=== PATIENT | female | born 1995 | race Caucasian/White ===

== ENCOUNTER 2017-06-13 14:15 | Emergency (ER) | payer SELFPAY ==
[2017-06-13 14:23] VITALS: BP 156/87; BMI 39.9
[2017-06-13 16:10] LABS: BILIRUBIN,URINE NEGATIVE (NEGATIVE); BLOOD/HEMOGLOBIN,URINE NEGATIVE (NEGATIVE); GLUCOSE, URINE NEGATIVE (NEGATIVE); KETONES,URINE NEGATIVE (NEGATIVE); LEUKOCYTE ESTERASE ,URINE 1+ (NEGATIVE); NITRITES,URINE NEGATIVE (NEGATIVE); PROTEIN,URINE NEGATIVE (NEGATIVE); UROBILINOGEN,URINE NORMAL (NORMAL)
--- NOTE | 2017-06-13 16:10 | DR.GENAD ---
HPI - PCP Primary Care Physician: lilian layton - Complaint/Symptoms Chief Complaint Doctors Comments: History as stated. Chief Complaint:: PT C/O EPIGASTRIC PAIN, NAUSEA, AND SEVERE HEART BURN. PT STATES THIS HAS BEEN GOING ON APPROX 2 WEEKS. PT STATES SHE HAS BEEN TO HER PCP AND SHE HAS BEEN PRESCRIBED MEDICATIONS, THAT IS NOT HELPING. Self Treatment fo Chief Complaint: RANTIDINE AND OMEPRAZOLE - Source History Provided: Patient - Mode of Arrival Mode of Arrival: Ambulatory - Timing Onset of Chief Complaint: 06/03/17 PMH - PMH Past Medical History: Yes Past Medical History: Anxiety, Depression, Hypertension Past Surgical History: Yes Past Surgical History Comment: WISDOM TEETH EXTRACTION - Family History History of Family Medical Conditions: No - Social History Does patient currently use any type of tobacco product: Yes Have you used tobacco products in the last 12 months: Yes Type of Tobacco Use: Cigarettes Does any household member use tobacco: Yes Alcohol Use: None Do you use any recreational Drugs:: No Lives With: Family Lives Where: Home - infectious screening In the last 2 months have you had wt loss of >10#?: NO Have you had fever, night sweats or hemotysis?: No Have you traveled outside the country in the last 6 months?: No Isolation: Standard ROS - Review of Systems Constitutional: No Symptoms Reported Eyes: No Symptoms Reported ENTM: No Symptoms Reported Respiratoy: No Symptoms Reported Cardiovascular: No Symptoms Reported Gastrointestinal/Abdominal: No Symptoms Reported Genitourinary: No Symptoms Reported Neurological: No Symptoms Reported Musculoskeletal: No Symptoms Reported Integumentary: No Symptoms Reported Hematologic/Lymphatic: No Symptoms Reported Endocrine: No Symptoms Reported Psychiatric: No Symptoms Reported All Other Systems: Reviewed and Negative PE - Vital Signs Vitals: Temperature 98.7 F Pulse Rate 110 Respiratory Rate 18 Blood Pressure 156/87 O2 Sat by Pulse Oximetry 98 - General Limitations: No Limitations General Appearance: Alert, In No Apparent Distress - Head Head Exam: Normal Inspection, Atraumatic - Eyes Eye exam: Normal Appearance, PERRL, EOMI - ENT ENT Exam: Normal Exam External Ear Exam: Normal External Inspection TM/Canal Exam: Bilateral Normal Nose Exam: Normal Nose Exam, Sinus Tenderness Mouth Exam: Normal Inspection Throat Exam: Normal Inspection - Neck Neck Exam: Normal Inspection, Full ROM - Chest Chest Inspection: Normal Inspection - Respiratory Respiratory Exam: Normal Lung Sounds Bilat Respiratory Exam: Bilateral Clear to Auscultation - Cardiovascular Cardiovascular Exam: Regular Rate, Normal Rhythm - Abdominal Exam Abdominal Exam: Normal Inspection, Normal Bowel Sounds Abdominal Tenderness: negative: RUQ, RLQ, LUQ, LLQ, Epigastrium, Suprapubic, Diffuse, Mild, Moderate, Severe, Other - Extremities Extremities Exam: Normal Inspection - Back Back Exam: Normal Inspection, Full ROM - Neurologic Neurological Exam: Alert, Oriented X3, CN II-XII Intact - Psychiatric Psychiatric Exam: Normal Affect, Normal Mood - Skin Skin Exam: Warm, Dry, Intact Course - Reevaluation 1st: Improved ROR - Labs Reviewed Result Diagrams: 06/13/17 16:18 06/13/17 16:18 Laboratory: WBC 10.1 X10^3/uL (3.6-10.0) H 06/13/17 16:18 RBC 5.04 X10^6/uL (3.5-5.4) 06/13/17 16:18 Hgb 15.0 g/dL (12.0-16.0) 06/13/17 16:18 Hct 42.9 % (36.0-47.0) 06/13/17 16:18 MCV 85.2 fL (80.0-100.0) 06/13/17 16:18 MCH 29.7 pg (27.0-34.0) 06/13/17 16:18 MCHC 34.9 g/dL (33.0-35.0) 06/13/17 16:18 RDW 13.4 % (11.6-16.5) 06/13/17 16:18 Plt Count 332 X10^3/uL (150.0-450.0) 06/13/17 16:18 MPV 8.2 fL (7.4-11.0) 06/13/17 16:18 Neut % 69.4 % (42.0-75.0) 06/13/17 16:18 Lymph % 21.6 % (21.0-51.0) 06/13/17 16:18 Gove % 6.7 % (0.0-13.0) 06/13/17 16:18 Eos % 1.7 % (0.9-2.9) 06/13/17 16:18 Baso % 0.6 % (0.2-1.0) 06/13/17 16:18 Neut # 7.0 x10^3/uL (2.2-4.8) H 06/13/17 16:18 Lymph # 2.2 X10^3/uL (1.3-2.9) 06/13/17 16:18 Gove # 0.7 x10^3/uL (0.3-0.8) 06/13/17 16:18 Eos # 0.2 x10^3/uL (0.0-0.2) 06/13/17 16:18 Baso # 0.1 X10^3/uL (0.0-0.1) 06/13/17 16:18 Absolute Nucleated RBC 0.0 /100WBC 06/13/17 16:18 Sodium 138 mmol/L (136-145) 06/13/17 16:18 Corrected Sodium TNP 06/13/17 16:18 Potassium 4.2 mmol/L (3.5-5.1) 06/13/17 16:18 Chloride 102 mmol/L (98-107) 06/13/17 16:18 Carbon Dioxide 28.9 mmol/L (21-32) 06/13/17 16:18 BUN 9 mg/dL (7-18) 06/13/17 16:18 Creatinine 0.91 mg/dL (0.55-1.02) 06/13/17 16:18 Est GFR (MDRD) Af Amer > 60 (>60) 06/13/17 16:18 Est GFR (MDRD) Non-Af > 60 (>60) 06/13/17 16:18 Glucose 96 mg/dL (65-99) 06/13/17 16:18 Calcium 9.5 mg/dL (8.5-10.1) 06/13/17 16:18 C-Reactive Protein 6.30 mg/L (0-3.0) H 06/13/17 16:18 Specimen Type Clean catch urine 06/13/17 15:50 Urine Color Yellow (YELLOW) 06/13/17 15:50 Urine Appearance Clear (CLEAR) 06/13/17 15:50 Urine pH 7.0 (5.0 - 8.0) 06/13/17 15:50 Ur Specific Mcgregor 1.010 (1.000-1.030) 06/13/17 15:50 Urine Protein Negative (NEGATIVE) 06/13/17 15:50 Urine Glucose (UA) Negative (NEGATIVE) 06/13/17 15:50 Urine Ketones Negative (NEGATIVE) 06/13/17 15:50 Urine Occult Blood Negative (NEGATIVE) 06/13/17 15:50 Urine Nitrite Negative (NEGATIVE) 06/13/17 15:50 Urine Bilirubin Negative (NEGATIVE) 06/13/17 15:50 Urine Urobilinogen Normal (NORMAL) 06/13/17 15:50 Ur Leukocyte Esterase 1+ (NEGATIVE) 06/13/17 15:50 Urine RBC None seen /HPF (NEGATIVE) 06/13/17 15:50 Urine WBC 1-2 /HPF (NEGATIVE) 06/13/17 15:50 Ur Squamous Epith Cells Few /HPF (NEGATIVE) 06/13/17 15:50 Urine Bacteria 1+ /HPF (NEGATIVE) 06/13/17 15:50 Ur Culture Indicated? No/not indicated 06/13/17 15:50 H. pylori IgG Antibody Negative (NEGATIVE) 06/13/17 16:18 - Diagnosis Discharge Problem: Viral upper respiratory illness - Discharge Plan Condition: Stable - Follow ups/Referrals Follow ups/Referrals: KARENA LAYTON [Primary Care Provider] - 3 days - Instructions
[2017-06-13 16:17] LABS: APPEARANCE,URINE CLEAR (CLEAR); BACTERIA,URINE 1+ /HPF (NEGATIVE); COLOR,URINE YELLOW (YELLOW); RBC,URINE NONE SEEN /HPF (NEGATIVE); SQUAMOUS EPITHELIAL CELL,UR FEW /HPF (NEGATIVE)
[2017-06-13 16:30] LABS: BASOPHILS # (AUTO) 0.1 X10^3/uL (0.0-0.1); BASOPHILS % (AUTO) 0.6 % (0.2-1.0); EOSINOPHILS # (AUTO) 0.2 x10^3/uL (0.0-0.2); EOSINOPHILS % (AUTO) 1.7 % (0.9-2.9); HEMATOCRIT 42.9 % (36.0-47.0); LYMPHOCYTES # (AUTO) 2.2 X10^3/uL (1.3-2.9); LYMPHOCYTES % (AUTO) 21.6 % (21.0-51.0); MEAN CORPUSCULAR HEMOGLOBIN 29.7 pg (27.0-34.0); MEAN CORPUSCULAR HGB CONC 34.9 g/dL (33.0-35.0); MEAN CORPUSCULAR VOLUME 85.2 fL (80.0-100.0); MEAN PLATELET VOLUME 8.2 fL (7.4-11.0); MONOCYTES # (AUTO) 0.7 x10^3/uL (0.3-0.8); MONOCYTES % (AUTO) 6.7 % (0.0-13.0); NEUTROPHILS % (AUTO) 69.4 % (42.0-75.0); PLATELET COUNT 332 X10^3/uL (150.0-450.0); RED BLOOD COUNT 5.04 X10^6/uL (3.5-5.4); RED CELL DISTRIBUTION WIDTH 13.4 % (11.6-16.5); WHITE BLOOD COUNT 10.1 X10^3/uL (3.6-10.0)
[2017-06-13 16:37] LABS: BLOOD UREA NITROGEN 9 mg/dL (7-18); CALCIUM 9.5 mg/dL (8.5-10.1); CARBON DIOXIDE 28.9 mmol/L (21-32); CHLORIDE 102 mmol/L (98-107); CREATININE 0.91 mg/dL (0.55-1.02); SODIUM 138 mmol/L (136-145); eGFR BLACK RACES > 60 (>60); eGFR NON BLACK RACES > 60 (>60)
--- NOTE | 2017-06-13 18:23 | RAD ---
Acute abdominal series, four views Indication: Epigastric pain Comparison: None Findings: The heart size is normal the lungs are clear. The visualized bowel gas pattern is nonobstructed. No convincing pneumatosis or free intraperitoneal air is identified. No pathologic calcifications are seen. The regional skeleton is intact. Impression: No acute chest or abdominal process. Reported By:
== END 2017-06-13 18:11 | disposition home or self-care (01) ==
LOC: ER 14:27
DX: J06.9 Acute upper respiratory infection, unspecified (principal)
CPT/HCPCS: 36415; 74022; 80048; 81001; 85025; 86140; 86677; 99282

== ENCOUNTER → 2018-01-10 | Outpatient (CLI) | payer SELFPAY ==
--- NOTE | 2018-01-10 11:39 | US ---
History: Right upper quadrant pain Exam: Right upper quadrant ultrasound Comparison: None Technique: Multiple grayscale and color flow Doppler images of the right upper quadrant were obtained . Findings: The liver is grossly normal in size with increased echogenicity throughout. No focal lesion is seen. There is hepatopetal flow in the portal vein and the visualized hepatic veins and IVC are unremarkabl e. The gallbladder is normal size with no gallstones or wall thickening. The common duct measures 4 m m. The right kidney measures 9 x 6 x 6 cm and is normal in echogenicity. No hydronephrosis or renal s tones are seen . The pancreas is not well visualized. IMPRESSION: Normal size liver with probable fatty changes throughout . Normal gallbladder and biliary tree. Reported By:
== END ==
LOC: RAD 09:29
PROVIDERS: ATTEND Nurse Practitioner Family
DX: R10.11 Right upper quadrant pain (principal); R19.7 Diarrhea, unspecified; R11.0 Nausea; K21.9 Gastro-esophageal reflux disease without esophagitis
CPT/HCPCS: 76705

== ENCOUNTER → 2018-01-22 | Outpatient (CLI) | payer SELFPAY ==
--- NOTE | 2018-01-22 13:11 | NM ---
Nuclear medicine HIDA scan with ejection fraction Indication: Right upper quadrant pain Comparison: Ultrasound performed on 01/10/2018 Technique: Multiple scintigraphic images of the abdomen were obtained the intravenous administration of 5.2 mCi of technetium labeled Choletec. Following distention of the gallbladder with radiotracer oral administration of 8 oz of Ensure was pe rformed An estimated gallbladder ejection fraction was calculated based on the physiologic response. Findings: Homogeneous uptake of radiotracer is seen throughout the liver. This intrabiliary ductal system is o bserved normally. The common hepatic and common bile duct grossly appear unremarkable with normal bi liary-bowel transit. The gallbladder is observed to fill normally. After oral administration of Ensure, abnormal gallbladder ejection fraction of 29% (normal > 35%) is observed. IMPRESSION: 1. Normal hepatobiliary imaging scan. 2. Slightly decreased gallbladder ejection fraction, clinical correlation for signs of biliary dyski nesia is recommended. Reported By:
== END ==
LOC: RAD 10:28
PROVIDERS: ATTEND Nurse Practitioner Family
DX: R10.11 Right upper quadrant pain (principal); R10.13 Epigastric pain
CPT/HCPCS: 78227; A9537